=== PATIENT | female | born 1955 | race Two or more races ===

== ENCOUNTER 2022-11-05 18:57 | Emergency (ER) | payer OTHER ==
[~2022-11-05] VITALS: Ht 157.5 cm; Wt 81.6 kg
[2022-11-05 19:10] VITALS: BP 120/80
--- NOTE | 2022-11-05 19:24 | NUR ---
[id number] from work c/o lower back pain s/p missing a chair trying to sit and hitting her head. denies loc. Pt A/ox4. Tolerating R/A well no SOB
[2022-11-05] MEDS ORDERED: HYDROCODONE/APAP 5/325MG TABLET PO ONE (19:30)
[2022-11-05] MEDS ORDERED: NAPR-1009 PO (20:19)
[2022-11-05] MEDS ORDERED: HYDROCODONE/APAP 5/325MG TABLET ONE (20:24)
--- NOTE | 2022-11-05 20:30 | NUR ---
Patient discharged to home in stable condition. Written and verbal after care instructions given. Patient verbalizes understanding of instruction.
== END 2022-11-05 23:30 | disposition home or self-care (01) ==
LOC: ER 18:59
DX: M54.50 Low back pain, unspecified (principal); R51.9 Headache, unspecified; I10 Essential (primary) hypertension; W07.XXXA Fall from chair, initial encounter; Y93.89 Activity, other specified; Y92.89 Other specified places as the place of occurrence of the external cause; Y99.8 Other external cause status